=== PATIENT | male | born 1960 | race Caucasian/White ===

== ENCOUNTER → 2018-09-08 | Outpatient (CLI) | payer OTHER ==
--- NOTE | 2018-09-08 15:15 | KCIC ---
AP pelvis with two-view left hip HISTORY: Greater trochanteric bursitis of the left hip. FINDINGS: No evidence of acute fracture. No bone destruction. Joint spaces intact. No significant soft tissue abnormality. There is a surgical clip overlying the right hip. Retained stool seen in the colon. IMPRESSION: No acute bone abnormality. Electronically signed by: John Jade MD (09/08/2018 3:12 PM) [id number]
== END | disposition home or self-care (01) ==
LOC: KCIC 10:46
PROVIDERS: ATTEND Physician Assistant Medical
DX: M70.62 Trochanteric bursitis, left hip (principal)
CPT/HCPCS: 73502